=== PATIENT | male | born 1945 | race Caucasian/White ===

== ENCOUNTER 2019-04-14 09:03 | Day surgery (SDC) | payer OTHER ==
[2019-04-14 09:16] VITALS: BMI 31.3
--- NOTE | 2019-04-14 10:28 | PDOC ---
History of Present Illness - General Chief Complaint: Pain Stated Complaint: LEG PAIN Time Seen by Provider: 04/14/19 09:31 History Source: Patient Exam Limitations: No Limitations - History of Present Illness Initial Comments: 04/14/19 10:23 73-year-old male with history of hypertension, sigmoid cancer with liver mets presents complaining of atraumatic bilateral foot pain for 5 days. Denies fever , chills, foot swelling, leg swelling, calf pain, shortness of breath, chest pain, abdominal pain or any other complaint. Patient requested I called Mil[facility] Gund[facility] for more information. ROS: as above PE: GENERAL: well-appearing, NAD HEAD: NCAT EYES: Pupils equal, round and reactive to light, sclera anicteric, conjunctiva clear ENT: pharynx: no erythema, no exudate, uvula midline NECK: supple CHEST: nontender RESP: clear, no w/r/r CARDIO: rrr, no m/g/r ABD: +BS, soft, nontender, non distended BACK: no midline spinal ttp, no CVAT EXTREMITIES: Normal range of motion, no edema, positive pedal pulses, ambulating with use of cane NEUROLOGICAL: Normal speech, normal gait SKIN: Warm, Dry Is this a multiple visit Asthma Patient?: No Past History - Past Medical History Allergies/Adverse Reactions: Allergies Allergy/AdvReac Type Severity Reaction Status Date / Time No Known Allergies Allergy Verified 04/14/19 09:13 - Psycho Social/Smoking Cessation Hx Smoking History: Never smoked Information on smoking cessation initiated: No Hx Alcohol Use: No Drug/Substance Use Hx: No *Physical Exam - Vital Signs Last Vital Signs Temp Pulse Resp BP Pulse Ox 94 H 18 118/58 L 99 04/14/19 09:13 04/14/19 09:13 04/14/19 09:13 04/14/19 09:13 ED Treatment Course - RADIOLOGY Radiology Studies Ordered: Category Date Time Status CHEST PA & LAT [RAD] Stat Radiology 04/14/19 10:22 Ordered Medical Decision Making - Medical Decision Making 04/14/19 10:25 73-year-old male with hypertension complaining of atraumatic bilateral foot pain worsening over the past 5 days. Denied any other medical history to me. Upon calling Milind Gunderson ([phone]) I was informed that patient has a history of sigmoid cancer with liver mets and is to be admitted to the hospital today for port placement in order to begin chemotherapy treatment. Discussed the plan with patient and patient agrees with admission Ordered labs including type and screen, coags, EKG, chest x-ray Patient is to be admitted to [facility] Discharge - Discharge Information Problems reviewed: Yes Clinical Impression/Diagnosis: Foot pain, bilateral Condition: Stable - Admission Yes - Follow up/Referral Referrals: Milind Hurley, [Primary Care Provider] - - Patient Discharge Instructions - Post Discharge Activity
[2019-04-14 11:00] LABS: BASO % 0.7 % (0-2.0); HEMOGLOBIN 11.9 GM/dL (11.7-16.9); LYMPH % 23.8 % (8-40); MCH 25.5 pg (25.7-33.7); MCHC 32.1 g/dl (32.0-35.9); MEAN CELL VOLUME 79.6 fl (80-96); MEAN PLT VOLUME 8.5 fl (7.5-11.1); MONO % 8.3 % (3.8-10.2); NEUT % 64.2 % (42.8-82.8); PLATELET COUNT 483 K/MM3 (134-434); RBC 4.65 M/mm3 (4.00-5.60); RDW 16.8 % (11.9-15.9); WHITE BLOOD COUNT 9.6 K/mm3 (4.0-10.0)
[2019-04-14 11:17] LABS: INR 1.14 (0.83-1.09); PROTHROMBIN TIME (PATIENT) 13.5 SEC (9.7-13.0)
[2019-04-14 11:20] LABS: ACTIVATED PTT 33.2 SECONDS (25.2-36.5)
[2019-04-14 11:36] LABS: ALBUMIN 3.7 g/dl (3.4-5.0); BILIRUBIN,TOTAL 0.3 mg/dL (0.2-1); BLOOD UREA NITROGEN 33.8 mg/dL (7-18); CALCIUM 9.5 mg/dL (8.5-10.1); CREATININE 1.4 mg/dL (0.55-1.3); POTASSIUM 5.1 mmol/L (3.5-5.1); TOT PROT 7.8 g/dl (6.4-8.2)
[2019-04-14] MEDS ORDERED: HEPARIN NA (PORCINE) 5,000 UNITS/ML 1ML VIAL ONE (12:32)
[2019-04-14] MEDS ORDERED: LIDOCAINE HCL 1%, 10 MG/ML (20ML VIAL) ONE (12:42)
[2019-04-14] MEDS ORDERED: MIDAZOLAM HCL 2 MG/2 ML SINGLE DOSE VIAL ONE (13:06)
[2019-04-14] MEDS ORDERED: PROPOFOL 20 ML ONE ×2 (13:06→14:47)
[2019-04-14] MEDS ORDERED: ONDANSETRON 4 MG/2 ML VIAL IVPUSH PRN (14:06)
[2019-04-14] MEDS ORDERED: LACTATED RINGERS SOLUTION 1,000 ML IV SCH (14:15)
--- NOTE | 2019-04-14 14:16 | HP ---
Admitting History and Physical - Admission Chief Complaint: pt here for port placement. Pt with colon cancer with liver mets. Limitations to Obtaining History: No Limitations - Smoking History Smoking history: Never smoked - Alcohol/Substance Use Hx Alcohol Use: No Home Medications - Allergies Allergies/Adverse Reactions: Allergies Allergy/AdvReac Type Severity Reaction Status Date / Time No Known Allergies Allergy Verified 04/14/19 09:13 Review of Systems - Review of Systems Constitutional: reports: No Symptoms Eyes: reports: No Symptoms HENT: reports: No Symptoms Neck: reports: No Symptoms Cardiovascular: reports: No Symptoms Respiratory: reports: No Symptoms Gastrointestinal: reports: No Symptoms Genitourinary: reports: No Symptoms Musculoskeletal: reports: No Symptoms Integumentary: reports: No Symptoms, Incision Neurological: reports: No Symptoms Endocrine: reports: No Symptoms Hematology/Lymphatic: reports: No Symptoms Physical Examination Vital Signs: Vital Signs Temperature 98.7 F 04/14/19 12:22 Pulse Rate 92 H 04/14/19 12:22 Respiratory Rate 18 04/14/19 12:22 Blood Pressure 103/69 04/14/19 12:22 O2 Sat by Pulse Oximetry (%) 97 04/14/19 12:22 Constitutional: Yes: Well Nourished, No Distress, Calm Eyes: Yes: WNL, Conjunctiva Clear, EOM Intact HENT: Yes: WNL, Atraumatic, Normocephalic Neck: Yes: WNL, Supple, Trachea Midline Cardiovascular: Yes: WNL, Regular Rate and Rhythm Respiratory: Yes: WNL, Regular, CTA Bilaterally Gastrointestinal: Yes: WNL, Normal Bowel Sounds Musculoskeletal: Yes: WNL Extremities: Yes: WNL Edema: No Peripheral Pulses WNL: Yes Integumentary: Yes: WNL Neurological: Yes: WNL, Alert, Oriented ...Motor Strength: WNL Psychiatric: Yes: WNL Labs: CBC, BMP 04/14/19 10:40 04/14/19 10:40 Problem List - Problems (1) Colon cancer metastasized to liver Assessment/Plan: for portacath insertion Code(s): C18.9 - MALIGNANT NEOPLASM OF COLON, UNSPECIFIED; C78.7 - SECONDARY MALIG NEOPLASM OF LIVER AND INTRAHEPATIC BILE DUCT
[2019-04-14] MEDS ORDERED: ceFAZolin SODIUM 1 GM VIAL IVPB ONE (14:30)
--- NOTE | 2019-04-14 14:30 | EKG ---
Test Reason : Blood Pressure : / mmHG Vent. Rate : 092 BPM Atrial Rate : 092 BPM P-R Int : 150 ms QRS Dur : 096 ms QT Int : 374 ms P-R-T Axes : 061 -50 036 degrees QTc Int : 462 ms NORMAL SINUS RHYTHM RSR' OR QR PATTERN IN V1 SUGGESTS RIGHT VENTRICULAR CONDUCTION DELAY LEFT ANTERIOR FASCICULAR BLOCK ABNORMAL ECG NO PREVIOUS ECGS AVAILABLE Confirmed by Hayden Nunez ([id number]) on 04/14/2019 2:30:21 PM Referred By: Confirmed By:Hayden Nunez
[2019-04-14] MEDS ORDERED: ceFAZolin SODIUM 1 GM VIAL ONE (14:37)
[2019-04-14] MEDS ORDERED: LIDOCAINE HCL 1%, 10 MG/ML (20ML VIAL) NR ONE (14:57)
--- NOTE | 2019-04-14 15:15 | OP ---
Operative Note - Note: Operative Date: 04/14/19 Pre-Operative Diagnosis: Colon cancer with mets to liver Operation: Insertion of portacath Post-Operative Diagnosis: Same as Pre-op Surgeon: Milind Hurley Anesthesia: Fractional Estimated Blood Loss (mls): 25 Operative Report Dictated: Yes
[2019-04-14 17:54] VITALS: TEMP 98
[2019-04-14 18:01] VITALS: BP 133/72; PULSE 84
--- NOTE | 2019-04-16 13:13 | OP ---
DATE OF OPERATION: 04/14/2019 PREOPERATIVE DIAGNOSIS: Colon cancer with liver metastasis. POSTOPERATIVE DIAGNOSIS: Colon cancer with liver metastasis. PROCEDURE: Insertion of Port-A-Cath. SURGEON: Milind Garcia DO ANESTHESIA: Fractional. BLOOD LOSS: 25 mL. DESCRIPTION OF PROCEDURE: Patient is a 73-year-old male who comes in for Port-A-Cath insertion. Patient was consented for the procedure, understanding all risks, benefits, and alternatives, was then taken to the operating room. Once in the operating room, he was laid on the operating table in supine manner, and the area of the right neck and chest were prepped and draped in a sterile surgical manner. Under ultrasound guidance, we visualized the right anterior jugular vein and 10 mL of lidocaine 1% was injected there. We then took our Micropuncture needle, punctured the right internal jugular vein. Micropuncture wire was inserted. Micropuncture sheath was inserted and a 0.035 floppy guide wire was inserted. We then went below the clavicle onto the chest wall and 15 mL of lidocaine 1% was injected there. We then took a No. 15 blade and made a 4-cm incision. We then went ahead and used Bovie electrocautery to go through all the subcutaneous tissue and using a vein retractor, we were able to create a pocket for our port. We then went ahead and used an 11-blade and made a 1-cm incision at the puncture site. We then went ahead and tunneled the catheter up to the puncture site and the catheter was cut to size. We then placed our breakaway sheath over the guide wire into the vein under fluoroscopy and the cannula and guide wire were removed. Catheter was placed inside the sheath, sheath was broken away, and the catheter was placed inside the vein. Neck of the catheter was nice and smooth. Tip of the catheter was located outside the right atrium. We then used a Chamberlain needle and we rocío back on the Port-A-Cath and there was good flow. Heparinized saline was injected and 2000 units of IV heparin was injected into the port. We then used 3-0 Vicryl and the Port-A-Cath was secured to the subcutaneous tissue was used and the subcutaneous tissue was approximated in an interrupted manner, and the skin was closed with 4-0 Biosyn in a subcuticular running fashion. The area was wet and dried. Dermabond, Steri-Strips, 4 x 4, Tegaderms were placed. Patient tolerated the procedure with no complications. Patient transferred to PACU in stable condition. MILIND GARCIA DO NP/[id number]
== END 2019-04-14 17:45 | disposition home or self-care (01) ==
LOC: JER 09:03 → JERFT 09:03 → JERBED 10:28 → JASUSAT 10:28 → UNDOADMIN 10:28 → JASUSAT 17:45 → UNDODISIN 17:45
PROVIDERS: ATTEND Surgery Vascular Surgery
PROC: B548ZZA Ultrasonography of Superior Vena Cava, Guidance (ICD-10-PCS; 2019-04-14)
PROC: 02HV33Z Insertion of Infusion Device into Superior Vena Cava, Percutaneous Approach (ICD-10-PCS; principal; 2019-04-14 12:00)
DX: C18.9 Malignant neoplasm of colon, unspecified (principal); C78.7 Secondary malignant neoplasm of liver and intrahepatic bile duct
CPT/HCPCS: 36561; C1788; 36415; 71045-TC-FY; 76000-TC-FY; 80053; 85025; 85610; 85730; 86850; 86900; 86901; 93005; 93010; 94760; 99285-25; J1644